=== PATIENT | male | born 1940 | race Caucasian/White ===

== ENCOUNTER → 2017-05-06 | Outpatient (CLI) | payer OTHER ==
[~2017-05-06] MED LIST: AMOX1TAB42 PO; ASPI81TA28 PO; CHOL2000 PO; CLC100 PO; DIPH38TA PO; PLAVIX75 PO; RIZA10TA18 PO; TRAM-10 PO
--- NOTE | 2017-05-06 09:01 | DIAGNOSTIC IMAGING REPORT ---
TWO VIEW CHEST CLINICAL HISTORY: Pulmonary nodule. FINDINGS: PA and lateral chest radiographs are compared to study dated 04/29/2017. The cardiomediastinal silhouette is unremarkable. There is atherosclerotic calcification of the thoracic aorta. Emphysema and chronic interstitial thickening are similar to previous. No airspace consolidation or large pleural effusion is identified. Postoperative change is suggested at the right lung base. Linear scarring is identified in the right midlung. There is no pneumothorax. The bony thorax appears intact. IMPRESSION: 1. Emphysema with no acute cardiopulmonary abnormality. 2. Postoperative change and scarring is identified in the right lung. No discrete pulmonary nodule is seen by x-ray. Electronically signed by: Carlos Walter M.D. 05/06/2017 9:00 AM Dictated Date/Time: 05/06/2017 8:55 AM
== END | disposition home or self-care (01) ==
LOC: C.RAD 08:21
PROVIDERS: ATTEND Surgery
DX: R91.1 Solitary pulmonary nodule (principal)

== ENCOUNTER → 2017-08-05 | Outpatient (CLI) | payer OTHER ==
--- NOTE | 2017-08-05 09:39 | DIAGNOSTIC IMAGING REPORT ---
CHEST 2 VIEWS ROUTINE CLINICAL HISTORY: Pulmonary nodule. COMPARISON STUDY: Chest radiograph May 06, 2017. FINDINGS: Postoperative findings within the right lower lung are noted. There is no pneumothorax. There is a possible trace right pleural effusion which has decreased in size. There is no evidence for pulmonary edema. Cardiac size is normal. Mediastinal contours are normal. No noncalcified pulmonary nodules are identified although sensitivity is diminished given radiographic technique. There may be a 4 mm calcified right midlung granuloma. IMPRESSION: Postoperative findings within the right lower lung. Possible trace right pleural effusion, decreased in size since prior exam. No pneumothorax. Electronically signed by: Bud Alvarez M.D. 08/05/2017 9:37 AM Dictated Date/Time: 08/05/2017 9:34 AM
== END | disposition home or self-care (01) ==
LOC: C.RAD1850 09:24
PROVIDERS: ATTEND Physician Assistant
DX: R91.1 Solitary pulmonary nodule (principal)

== ENCOUNTER → 2018-01-13 | Outpatient (CLI) | payer OTHER ==
[~2018-01-13] MED LIST changes: +ACET-1047 PO; -AMOX1TAB42 PO; +ATV/1 PO; +CAL1CHW4 PO; -DIPH38TA PO; +NRN300 PO; -TRAM-10 PO; +ULT/50 PO
--- NOTE | 2018-01-13 10:36 | DIAGNOSTIC IMAGING REPORT ---
CHEST 2 VIEWS ROUTINE CLINICAL HISTORY: C34.90 Non-small cell lung [id number] dyspnea COMPARISON STUDY: 12/28/2017 FINDINGS: Small right apical pneumothorax estimated 15% right hemithoracic volume. No separation is 2.0 cm. Small right effusion unchanged. No evidence for cardiac enlargement. IMPRESSION: 1. Interval development of a small right apical pneumothorax estimated at 15% of total volume. 2. Maximum pleural separation is 2 cm. 3. Unchanging right pleural effusion. The above report was generated using voice recognition software. It may contain grammatical, syntax or spelling errors. Electronically signed by: Bakari Norris M.D. 01/13/2018 10:35 AM Dictated Date/Time: 01/13/2018 10:33 AM
== END | disposition home or self-care (01) ==
LOC: C.RAD1850 10:18
PROVIDERS: ATTEND Physician Assistant
DX: C34.90 Malignant neoplasm of unspecified part of unspecified bronchus or lung (principal)

== ENCOUNTER 2019-03-03 06:18 | Inpatient (IN) ==
--- NOTE | 2019-02-13 16:26 | PAT Medication Instructions ---
Medication Instructions Date of Service February 13, 2019 Home Medications aspirin 81 mg tablet,delayed release 81 mg PO QAM cholecalciferol (vitamin D3) 2,000 unit capsule 2,000 unit PO QAM clopidogrel 75 mg tablet 75 mg PO QAM gabapentin 300 mg capsule PO .TAKE 1 CAPSULE 3 JASWANT lorazepam 1 mg tablet 1 mg PO DAILY PRN omeprazole 20 mg capsule,delayed release 20 mg PO QAM propranolol 10 mg PO BID ASK your prescriber and surgeon aspirin 81 mg tablet,delayed release 81 mg PO QAM clopidogrel 75 mg tablet 75 mg PO QAM DO NOT take the morning of surgery cholecalciferol (vitamin D3) 2,000 unit capsule 2,000 unit PO QAM Take morning of surgery With a small sip of water, OTHERWISE NOTHING TO EAT OR DRINK AFTER MIDNIGHT: gabapentin 300 mg capsule PO .TAKE 1 CAPSULE 3 JASWANT lorazepam 1 mg tablet 1 mg PO DAILY PRN (if needed) omeprazole 20 mg capsule,delayed release 20 mg PO QAM propranolol 10 mg PO BID Take evening before surgery gabapentin 300 mg capsule PO .TAKE 1 CAPSULE 3 JASWANT propranolol 10 mg PO BID Other Notes If you have any questions please call us at [phone] or [phone] or [phone] or [phone]
--- NOTE | 2019-02-14 14:34 | Anesthesiology Consultation ---
Date of Service February 14, 2019 Assessment & Plan (1) Encounter for pre-operative examination: Chart Review Chart Review: Acceptable Risk for Surgery and Patient seen in Pre Admission Testing Teaching & Discussion Pre-Anesthesia Teaching/Discussion Notes: Instructed NPO after midnight before surgery,except medications with 15 cc of water. Medication instructions provided according to the PAT guidelines. History Surgery Operation Date: 03/03/19 11:55 Proposed Procedures p C5 Corpectomy with Spinal Cord Monitoring - Reginald Franks DO Height/Weight Height: 6 ft 1 in Weight: 71.6 kg Allergies Allergy/AdvReac Type Severity Reaction Status Date / Time No Known Allergies Allergy Unverified 02/13/19 09:20 Medications Home Medications Medication Instructions Recorded Confirmed Last Taken aspirin 81 mg tablet,delayed 81 mg PO QAM tab 01/26/19 02/13/19 Unknown release cholecalciferol (vitamin D3) 2,000 2,000 unit PO QAM cap 01/26/19 02/13/19 Unknown unit capsule clopidogrel 75 mg tablet 75 mg PO QAM #30 tab 01/26/19 02/13/19 Unknown gabapentin 300 mg capsule PO .TAKE 1 CAPSULE 3 JASWANT #90 cap 01/26/19 01/30/19 Unknown lorazepam 1 mg tablet 1 mg PO DAILY PRN #90 tab 01/26/19 02/13/19 Unknown omeprazole 20 mg capsule,delayed 20 mg PO QAM #90 cap 01/26/19 02/13/19 Unknown release propranolol 10 mg PO BID 02/13/19 02/13/19 Unknown Past Medical History Medical History Anxiety Chronic neck and back pain Deep vein thrombosis right leg (2015) GERD (gastroesophageal reflux disease) controlled Hypertension Non-small cell cancer of right lung Osteoarthritis PVD (peripheral vascular disease) Per records, hx LLE stent; patient denies stent, stating that he was told this was a "filter" for clot prevention-- placed on plavix after LLE procedure Exercise / Class Metabolic Activity III < 4 Walking/Shop/Light housework Past Family History Family History Brother FHx: cancer Past Surgical History Surgical History History of appendectomy History of colonoscopy History of repair of rotator cuff bilateral History of tonsillectomy Status post lobectomy of lung Davinci Right VATS, RLL lobectomy with mediastinal LND: 12/08/17: Grade view 1, MAC#3 at [facility] Past Anesthesia History No Hx of Anesthesia Complications and No Family Hx of Anesthesia Complications History of PONV No Hx of PONV and No Hx of Motion Sickness Social History Smoking Status: Former smoker tobacco type: cigarettes Do You Dip or Chew Tobacco: No (Remote hx; quit 1979) Smoking End Date: Quit 2016; hx <1 PPD x 50 years Hx Alcohol Use: Yes Alcohol type: beer alcohol intake frequency: 3 or more drinks per day (*2-3 beers/day* (evening only)) Hx Substance Use: No substance use type: does not use Review of Systems Reflux controlled. Patient denies chest pain, shortness of breath, cough, wh eezing, palpitations. Physical Exam Vital Signs VITALS BP 109/65 P 66 TEMP 97.7 SP02 96%RA RESP 18 PHYSICAL Full neck and c-spine range of motion. Cervicalgia with extension Full TMJ range of motion. TMD 3.5 finger breaths Mallampati Score 3 Dentition: full dentures upper/lower; edentulous Lungs: no wheezing, rales or rhonchi Cardiac: regular rate and rhythm, no murmurs noted Spine: normal Carotid arteries: negative bruit Extremities: no edema Trimmed hopper. Testing Laboratory Results 02/14/19 14:55 02/14/19 14:55 PT 10.6 Seconds (9.0-12.0) 02/14/19 14:55 INR 1.0 (0.9-1.1) 02/14/19 14:55 APTT 26.3 Seconds (21.0-31.0) 02/14/19 14:55 Urine Color Yellow 02/14/19 Unknown Urine Appearance Clear (Clear) 02/14/19 Unknown Urine pH 5.0 (4.5-7.5) 02/14/19 Unknown Ur Specific [place] 1.018 (1.000-1.030) 02/14/19 Unknown Urine Protein Negative (Negative) 02/14/19 Unknown Urine Glucose (UA) Negative (Negative) 02/14/19 Unknown Urine Ketones Negative (Negative) 02/14/19 Unknown Urine Nitrite Negative (Negative) 02/14/19 Unknown Ur Leukocyte Esterase Negative (Negative) 02/14/19 Unknown Urine WBC (Auto) 0 /hpf (0-5) 02/14/19 Unknown Urine RBC (Auto) 0-4 /hpf (0-4) 02/14/19 Unknown U Hyaline Cast (Auto) 0 /lpf (0-5) 02/14/19 Unknown U Epithel Cells (Auto) 0-5 /lpf (0-5) 02/14/19 Unknown Urine Bacteria (Auto) Negative (Negative) 02/14/19 Unknown Blood Type O Positive 02/14/19 14:55 Antibody Screen NEGATIVE 02/14/19 14:55 Electrocardiogram Date: 02/14/19 Findings: + NSR @ (65) Other Testing Chest CT: 01/24/19: No acute intrathoracic abnormality identified. Postoperative changes from prior right lower lobectomy. No evidence of residual, recurrent or metastatic disease. Unchanged small right pleural effusion. There are several scattered bilateral solid pulmonary nodules redemonstrated, measuring up to 6 mm within the basal left lower lobe, unchanged from 11/16/2017. No new or definitively suspicious pulmonary nodules identified. Moderate emphysema.
[2019-02-14 15:43] LABS: Basophils # (auto) 0.01 K/uL (0-0.2); Basophils % (auto) 0.2 %; Eosinophils # (auto) 0.06 K/uL (0-0.5); Eosinophils % (auto) 1.4 %; Hematocrit (blood only) 35.8 % (42-52); Immature Granulocytes # (auto) 0.01 K/uL (0.00-0.02); Immature Granulocytes % (auto) 0.2 %; Lymphocytes # (auto) 0.98 K/uL (1.2-3.4); Lymphocytes % (auto) 22.1 %; Mean Corpuscular Hemoglobin 31.7 pg (25-34); Mean Corpuscular Hgb Conc 33.5 g/dL (32-36); Mean Corpuscular Volume 94.7 fL (80-100); Mean Platelet Volume 8.6 fL (7.4-10.4); Monocytes # (auto) 0.49 K/uL (0.11-0.59); Neutrophils # (auto) 2.89 K/uL (1.4-6.5); Neutrophils % (auto) 65.1 %; Platelet Count 146 K/uL (130-400); RDW Coefficient of Variation 13.4 % (11.5-14.5); RDW Standard Deviation 46.8 fL (36.4-46.3); Red Blood Count 3.78 M/uL (4.7-6.1); White Blood Count 4.44 K/uL (4.8-10.8)
[2019-02-14 15:46] LABS: Appearance Urine Clear (Clear); Bacteria Urine Automated Negative (Negative); Bilirubin Urine Negative (Negative); Blood Urine 2+ (Negative); Cast Urine Automated 0 /lpf (0-5); Color Urine Yellow; Epithelial Cell Urine Auto 0-5 /lpf (0-5); Glucose Urine UA Negative (Negative); Ketones Urine Negative (Negative); Leukocyte Esterase Urine Negative (Negative); Nitrite Urine Negative (Negative); Protein Urine Negative (Negative); RBC Urine Automated 0-4 /hpf (0-4); Specific Gravity Urine 1.018 (1.000-1.030); Urobilinogen Urine Negative (Negative); WBC Urine Automated 0 /hpf (0-5)
[2019-02-14 15:50] LABS: Calcium 8.9 mg/dl (8.5-10.1); Creatinine Clr Calc Pharmacy 57.6 ml/min; Est GFR (African American) 76.7; Est GFR (Non-African American) 66.1
[2019-02-14 16:16] LABS: Partial Thromboplastin Time 26.3 Seconds (21.0-31.0); Prothrombin Time 10.6 Seconds (9.0-12.0)
[~2019-03-03 06:18] MED LIST changes: -ACET-1047 PO; +ACETAMINOPHEN 500 MG TAB PO SCH; -ASPI81TA28 PO; -ATV/1 PO; -CAL1CHW4 PO; +CEFAZOLIN 1000MG 1,000 MG/7.5 ML SYR IV SCH; -CHOL2000 PO; -CLC100 PO; +CeleBREX 200 MG CAP PO SCH; +GABAPENTIN 300 MG CAP PO SCH; +LR 15ML/HR IV SCH; -NRN300 PO; -PLAVIX75 PO; -RIZA10TA18 PO; -ULT/50 PO
[2019-03-03] MEDS ORDERED: MIDAZOLAM HCL 1 MG/ML 2ML VIAL ONE (06:45)
[2019-03-03] MEDS ORDERED: HYDROmorphone INJ 2 MG/ML SYR/VIAL ONE ×2 (06:45→07:39)
[2019-03-03] MEDS ORDERED: fentaNYL citrate 100 MCG/2 ML VIAL ONE ×4 (06:45→09:38)
[2019-03-03] MEDS ORDERED: BACITRACIN INJ 50,000 UNIT VIAL ONE (07:07)
[2019-03-03] MEDS ORDERED: LARYING-O-JET KIT (LTA) ONE (07:21)
--- NOTE | 2019-03-03 07:37 | History & Physical Bridge Note ---
Date of Service March 03, 2019 History & Physical Bridge Note I have examined the patient, reviewed the History & Physical and in the interval since the performance of the History & Physical I have noted the following changes of clinical significance: no changes noted
--- NOTE | 2019-03-03 07:38 | History & Physical Report ---
Date of Service March 03, 2019 Assessment & Plan (1) Cervical stenosis of spinal canal: Corpectomy C5 Present on Admission?: Yes History of Present Illness Chief Complaint: Neck and bilateral arm pain Primary Care Provider: Lio Mao DO This is a 70-year-old male that presents with chronic persistent neck and arm symptoms after failing extensive course of nonoperative care is here for surgical intervention. Allergies Allergy/AdvReac Type Severity Reaction Status Date / Time No Known Allergies Allergy Verified 03/03/19 06:40 Home Medications Home Medications Medication Instructions Recorded Confirmed Type aspirin 81 mg tablet,delayed 81 mg PO QAM tab 01/26/19 03/03/19 History release cholecalciferol (vitamin D3) 2,000 2,000 unit PO QAM cap 01/26/19 03/03/19 History unit capsule clopidogrel 75 mg tablet 75 mg PO QAM #30 tab 01/26/19 03/03/19 History lorazepam 1 mg tablet 1 mg PO DAILY PRN #90 tab 01/26/19 03/03/19 History omeprazole 20 mg capsule,delayed 20 mg PO QAM #90 cap 01/26/19 03/03/19 History release propranolol 10 mg PO BID 02/13/19 03/03/19 History rizatriptan 10 mg PO BID PRN 03/03/19 03/03/19 History Past Med/Surg History Medical History Anxiety Chronic neck and back pain Deep vein thrombosis left leg GERD (gastroesophageal reflux disease) controlled Hypertension Osteoarthritis Non-small cell cancer of right lung PVD (peripheral vascular disease) Per records, hx LLE stent; patient denies stent, stating that he was told this was a "filter" for clot prevention-- placed on plavix after LLE procedure Surgical History History of appendectomy History of colonoscopy History of repair of rotator cuff bilateral History of tonsillectomy Status post lobectomy of lung Davinci Right VATS, RLL lobectomy with mediastinal LND: 12/08/17: Grade view 1, MAC#3 at [facility] Family History Brother FHx: cancer Social History Preferred Language: Slovak Communication Ability: Effective Electrician Wiring Required: No Beliefs That Will Affect Care: None Current Living Situation: Spouse Other Information That Helps Us Care for You: No Feels Safe at Home: Yes Safety Concerns: Feels Safe At This Time Smoking Status: Former smoker Tobacco Type: cigarettes ; Do You Dip or Chew Tobacco: No (Remote hx; quit 1979) ; Smoking End Date: Quit 2016; hx <1 PPD x 50 years ; Second Hand Exposure: No ; Tobacco Cessation Education Requested by Patient: No Hx Alcohol Use: Yes Alcohol type: beer Hx Substance Use: No Physical Exam Physical Exam: Patient alert and oriented neurologically intact. Results & Data Vital Signs (Past 12 Hours) Vital Signs Temp Pulse Resp BP Pulse Ox 03/03/19 06:55 36.3 C L 66 20 131/78 97
[2019-03-03] MEDS ORDERED: PROPOFOL IV EMULSION 10 MG/ML 100 ML VIAL IV ONE (07:39)
[2019-03-03] MEDS ORDERED: SUCCINYLCHOLINE CHLORIDE 20 MG/ML 10 ML VIAL ONE (07:41)
[2019-03-03] MEDS ORDERED: LIDOCAINE HCL 2% 2 ML VIAL/AMP(20MG/ML) INFIL ONE (07:41)
[2019-03-03] MEDS ORDERED: NEOSTIGMINE METHYLSULFATE 1 MG/ML 10ML VIAL ONE (07:41)
[2019-03-03] MEDS ORDERED: ROCURONIUM BROMIDE 10 MG/ML 5 ML VIAL ONE (07:41)
[2019-03-03] MEDS ORDERED: ONDANSETRON INJ 2 MG/ML 2 ML VIAL ONE (07:41)
[2019-03-03] MEDS ORDERED: DEXAMETHASONE SOD INJ 4 MG/ML VIAL ONE (07:41)
[2019-03-03] MEDS ORDERED: GLYCOPYRROLATE 0.2 MG/ML VIAL ONE (07:41)
[2019-03-03] MEDS ORDERED: PROPOFOL IV EMULSION 10 MG/ML 20 ML VIAL IV ONE ×2 (07:41→08:33)
[2019-03-03] MEDS ORDERED: ePHEDrine sulfate 50 MG/ML AMP IV PRN (07:45)
[2019-03-03] MEDS ORDERED: HYDROmorphone INJ 2 MG/ML SYR/VIAL IV PRN (07:45)
[2019-03-03] MEDS ORDERED: ATROPINE SULFATE 0.1 MG/ML 10ML SYR IV PRN (07:45)
[2019-03-03] MEDS ORDERED: ePHEDrine sulfate 50 MG/ML SYR ONE (08:35)
[2019-03-03] MEDS ORDERED: FLOSEAL HEMOSTATIC MATRIX 10ML TOP ONE (09:27)
--- NOTE | 2019-03-03 09:44 | Operative Report ---
Post Operative Report Pre & Post Diagnosis Operation Date: 03/03/19 07:45 Pre-Op Diagnosis: Cervical spinal stenosis with myeloradiculopathy Post-Op Diagnosis: Same Procedure Operation Date: 03/03/19 07:45 Actual Procedures #1 anterior cervical corpectomy with bilateral foraminotomies C5. #2 anterior cervical arthrodesis C4-C6. #3 placement of peek cage 25 mm in height C4-C6. #4 placement of locally harvested morselized autograft combined with DBM and interbody cage. #5 placement of watson plate and screws across C4-C6. Surgeon Reginald Franks, Lease Analyst None Estimated Blood Loss 20 Findings Consistent with Post-Op Diagnosis Specimens None Indications This is a 78-year-old male presents with worsening left arm symptoms and weakness after failing a course of nonoperative care like to undergo the above- mentioned procedure. Description of Procedure Patient was met with identified and informed consent obtained. Patient was then taken to the operative suite underwent ablation placed in a supine position Dhruv table with head De Guzman polisher balance screwhead. All bony prominences well-padded eyes inspected to ensure no external pressure placed upon. This point the anterior cervical spine was prepped and draped in normal sterile fashion. With the assistance of fluoroscopy and identified the C5 vertebral body transverse incision was placed on the right anterior aspect of the cervical spine overlying this region. Sharp dissection with the assistance of bipolar electric arteries performed on November exposing the anterior cervical spine from C4-C6. Self- retaining retractors placed. Then performed a complete discectomy C4-5 out to the uncovertebral joints bilaterally followed by C5-6. [place] distracting pins were then placed in C4 and C6 to distract across the C5 vertebral body. A complete corpectomy was then performed which included removal of all posterior annular fibers longitudinal ligament bilateral foraminotomies addressing severe stenosis. Endplates were then burred to subcortical bleeding bone and a 25 mm peek cage filled with morselized autograft and DBM tapped in position. Distraction apparatus was removed and a watson plate and screws applied with the assistance of fluoroscopy. Incision was then copiously irrigated explored to ensure no damage to surrounding structures remaining bleeding. 10 round ALEXIS drain inserted. The incision was then closed with 1 Vicryl in the fascia 2-0 Vicryl subcutaneously and 4-0 Monocryl for final skin closure. Steri-Strip st erile dressings placed. Patient will continue to PACU stable condition. Please note spinal cord monitoring was utilized that procedure no changes noted. I attest to the content of the Intraoperative Record and any orders documented therein. Any exceptions are noted below.
--- NOTE | 2019-03-03 09:54 | Fluoroscopy Report ---
FL cervical 2-3V CLINICAL HISTORY: C5 CORPECTOMY COMPARISON STUDY: None FLUOROSCOPY TIME: 8 seconds. NUMBER OF FLUOROSCOPIC IMAGES: 2 FINDINGS: 2 intraoperative fluoroscopic spot images reveal postsurgical changes of a C5 corpectomy, a nd anterior spinal fusion with anterior metallic plate and screws at the C4 and C6 levels. IMPRESSION: Intraoperative radiograph demonstrating a C5 corpectomy and anterior spinal fusion Electronically signed by: Jori Rose M.D. 03/03/2019 9:53 AM
[2019-03-03] MEDS ORDERED: LORazepam 0.5 MG TAB PO PRN (11:44)
[2019-03-03] MEDS ORDERED: MAGNESIUM HYDROXIDE SUSP 30 ML UDC PO PRN (11:44)
[2019-03-03] MEDS ORDERED: TRAMADOL HCL 50 MG TABLET PO PRN (11:44)
[2019-03-03] MEDS ORDERED: SCOPOLAMINE 1.5 MG TDSY TD SCH (11:44)
[2019-03-03] MEDS ORDERED: DO NOT ADMINISTER PNEUMOCOCCAL VACCINE PRN (11:44)
[2019-03-03] MEDS ORDERED: ACETAMINOPHEN 1,000 MG/100 ML VIAL IV PRN (11:44)
[2019-03-03] MEDS ORDERED: NALOXONE HCL 0.4 MG/1 ML VIAL/CARP IV PRN (11:44)
[2019-03-03] MEDS ORDERED: HYDROmorphone INJ 0.5 MG/0.5 ML SYR IV PRN (11:44)
[2019-03-03] MEDS ORDERED: LORazepam 1 MG TAB PO PRN (11:44)
[2019-03-03] MEDS ORDERED: LORazepam 0.5 MG/1 ML VIAL IV PRN (11:44)
[2019-03-03] MEDS ORDERED: ONDANSETRON INJ 2 MG/ML 2 ML VIAL IV PRN (11:44)
[2019-03-03] MEDS ORDERED: DiphenhydrAMINE HCL 50 MG/ML VIAL IV PRN (11:44)
[2019-03-03] MEDS ORDERED: RIZATRIPTAN BENZOATE 10 MG TAB PO PRN (11:44)
[2019-03-03] MEDS ORDERED: ACETAMINOPHEN 500 MG TAB PO PRN (11:44)
[2019-03-03] MEDS ORDERED: RACEPINEPHRINE 2.25% NEBU SOLN 0.5 ML VIAL INH PRN (11:44)
[2019-03-03] MEDS ORDERED: DO NOT ADMINISTER FLU VACCINE PRN (11:44)
[2019-03-03] MEDS ORDERED: DEXAMETHASONE SOD PHOSPHATE 8 MG in SYRINGE 0 ML IV PRN (11:44)
[2019-03-03] MEDS ORDERED: OXYCODONE HCL IR 5 MG TAB (IMMEDIATE RELEASE) PO PRN (11:44)
--- NOTE | 2019-03-03 12:14 | Anesthesiology Progress Note ---
Date of Service March 03, 2019 Anesthesia Post Procedure Vital Signs Vital Signs: Temp Pulse Pulse Resp BP Pulse Ox 03/03/19 12:10 82 18 98 03/03/19 11:59 85 16 137/73 100 03/03/19 11:35 36.5 C 71 16 130/69 99 03/03/19 11:10 36.6 C 69 14 131/71 97 03/03/19 11:00 36.6 C 68 14 125/69 97 03/03/19 10:50 36.6 C 92 H 14 124/75 97 03/03/19 10:40 36.6 C 72 14 136/74 96 03/03/19 10:30 69 14 136/76 98 03/03/19 10:20 81 16 128/79 99 03/03/19 10:10 67 16 137/78 98 03/03/19 10:00 75 16 138/81 99 03/03/19 09:51 36.3 C L 71 16 131/81 98 03/03/19 06:55 36.3 C L 66 20 131/78 97 Transfer of Care Handoff Completed per policy Notes Mental Status: alert / awake / arousable Patient Amnestic to Procedure: Yes Nausea / Vomiting: adequately controlled Pain: adequately controlled Airway Patency, RR, SpO2: stable & adequate BP & HR: stable & adequate Hydration State: stable & adequate Anesthetic Complications: no major complications apparent and Pt Satisfied with anesthetic care
[2019-03-03] MEDS: LACTATED RINGER'S 1,000 ML IV SCH (14:20)
[2019-03-03] MEDS ORDERED: COUGH DROP (SUGAR FREE) LOZ 24 LOZ/1 BOX BUCCAL PRN (16:05)
[2019-03-03] MEDS ORDERED: COUGH DROP (SUGAR FREE) LOZ 24 LOZ/1 BOX BUCCAL ONE (16:07)
[2019-03-03] MEDS: CEFAZOLIN 1000MG 1,000 MG/7.5 ML SYR IV SCH (16:12)
[2019-03-03] MEDS: CHECK SCOPOLAMINE PATCH PLACEMENT SCH (16:12)
[2019-03-03] MEDS: DOCUSATE SODIUM 100 MG CAP PO SCH (21:07)
[2019-03-03] MEDS: PROPRANOLOL HCL 10 MG TAB PO SCH (21:07)
[2019-03-04] MEDS: CHECK SCOPOLAMINE PATCH PLACEMENT SCH ×2 (00:22→08:45)
[2019-03-04] MEDS: LACTATED RINGER'S 1,000 ML IV SCH ×2 (00:22→03:46)
[2019-03-04] MEDS: CEFAZOLIN 1000MG 1,000 MG/7.5 ML SYR IV SCH ×2 (00:22→08:44)
--- NOTE | 2019-03-04 08:11 | Discharge Summary ---
Date of Service March 04, 2019 Admission HPI Per Admitting Provider This is a 70-year-old male that presents with chronic persistent neck and arm symptoms after failing extensive course of nonoperative care is here for surgical intervention. Principal Diagnosis Cervical spinal stenosis with myeloradiculopathy Discharge Data Allergies Allergy/AdvReac Type Severity Reaction Status Date / Time No Known Allergies Allergy Verified 03/03/19 06:40 Procedures Performed Operation Date: 03/03/19 07:45 Actual Procedures p C5 Corpectomy, Spinal Cord Monitoring(Not Applicable) - Reginald Franks DO Ordered Studies 03/03/19 07:45 FL cervical 2-3V Routine FL fluoroscopy <1hr Routine Hospital Course (1) Cervical stenosis of spinal canal: Patient underwent anterior cervical corpectomy fusion tolerated as well as taken to orthopedic for postoperative. Postop day #1 he was swallowing well. He had no hoarseness. Arm symptoms improved. ALEXIS drain decreasing appropriately. Subsequently discharged home. Discharge orders and instructions found in the chart for further review. Total Time Total Time Spent Total Time Spent (In Minutes): 20 minutes Discharge Plan Discharge Items Patient Disposition: Home - Self-Care Reason For Visit: Spinal Stenosis, Cervical Region Discharge Diagnosis: Cervical spinal stenosis with myeloradiculopathy Activity: Per Instructions section Non-emergency contact: Primary Care Provider Call non-emergency contact if: you have any medication questions Follow-up/Referrals: Lio Mao DO [Primary Care Provider] - Diet: Regular Addtl Attending Provider Instructions: ACTIVITY RECOMMENDATIONS: SELF CARE INSTRUCTIONS AFTER CERVICAL FUSIONS 1. No smoking. Smoking drastically decreases the chance of a solid fusion. 2. No bending, lifting more than 5 pounds, or twisting (roll like a log when turning in bed). 3. You may shower 3 days after surgery. Thoroughly dry wound. Do not soak in the tub. 4. Cervical collar: Must be worn at all times including sleeping. You may remove the brace only to bath, eat and if you are sitting in a recliner. 5. Please walk as much as you can for exercise. Gradually increase the distance that you walk as your endurance increases. SPECIAL CARE INSTRUCTIONS: VERY IMPORTANT TO READ AND REVIEW A. Do not take any anti-inflammatory medications (i.e. Indocin, Advil, Aspirin, Naprosyn, Aleve, Motrin, etc.) as these may inhibit the chance of a solid fusion. Tylenol is okay to take. B. Your surgical incision has been closed with a cosmetic suture under the skin that will dissolve in about 6 weeks. In 14 days, you can use a pair of clean scissors and cut the suture that is left outside of the skin at the ends of your incision. C. Complications are uncommon, but please contact us if you have any signs or symptoms of: 1. wound infection (fever higher than 102.5 degrees F, redness, separation of wound, drainage, or increasing pain from the incision) 2. blood clots in legs (pain, swelling, redness and warmth in legs) 3. urinary tract infection (fever higher than 102.5 degrees, burning upon urination or increased frequency of urination) 4. nerve problems (inability to walk on your toes or heels, numbness, loss of bowel or bladder control) 5. any other symptoms that concern you. D. Please call the office at if you have any concerns or questions about your operation or recovery. MANAGING PAIN AFTER SPINAL SURGERY 1. Narcotic medication is intended for short-term use and will be provided for surgical pain. Surgical pain usually lasts for a period of 4-6 weeks. Narcotic medication includes Percocet, Vicodin, Darvocet, Tylenol #3 or Lortab. 2. Longer-term pain is more appropriately treated with non-narcotic medication such as Tylenol ES. 3. Muscle spasm is not appropriately treated with narcotics. Muscle relaxers such as Soma, Flexeril or Skelaxin can be used along with Tylenol ES. 4. Remember that we all live with some "aches and pains". This is not unusual or uncommon after an injury or as we get older. 5. We will provide appropriate medication within the normal guidelines of their prescribed use. We will also be very cautious and aware of potential abuse and extended duration of patients' medication needs. 6. Please allow 2-3 days to process refills. Prescriptions will not be mailed but must be picked up at the office. FOLLOW UP VISIT: Keep your scheduled follow-up appointment. Any questions, please call the office at . Pending Studies at Discharge: No Stand-Alone Forms: [facility] [employer] and [place] Order Prescriptions: New tramadol 50 mg Tablet 50 mg PO Q4H PRN (Reason: Pain, Moderate) Qty: 20 RF: 0 oxycodone 5 mg Tablet 5 mg PO Q4H PRN (Reason: Pain, Severe) Qty: 20 RF: 0 Continued cholecalciferol (vitamin D3) 2,000 unit capsule 2,000 unit PO QAM RF: 0 lorazepam 1 mg tablet 1 mg PO DAILY PRN (Reason: Anxiety) Qty: 90 RF: 0 aspirin 81 mg tablet,delayed release (DR/EC) 81 mg PO QAM RF: 0 clopidogrel 75 mg tablet 75 mg PO QAM Qty: 30 RF: 0 omeprazole 20 mg capsule,delayed release(DR/EC) 20 mg PO QAM Qty: 90 RF: 0 propranolol 10 mg Tablet 10 mg PO BID RF: 0 rizatriptan 10 mg Tablet 10 mg PO UD PRN (Reason: Migraine Headache) RF: 0 Discharge Orders: Discharge Order (Routine); Ordered 03/04/19 Ordered By: Reginald Franks Admission Data Admit Date/Time: 03/03/19 09:49 Attending Provider: Reginald Franks Admit Provider: Reginald Franks Primary Care Provider: Lio Mao
[2019-03-04] MEDS: DOCUSATE SODIUM 100 MG CAP PO SCH (08:45)
[2019-03-04] MEDS: PROPRANOLOL HCL 10 MG TAB PO SCH (08:45)
[2019-03-04] MEDS ORDERED: ASPIRIN 81 MG ECTAB PO SCH (09:00)
[2019-03-04] MEDS ORDERED: PANTOprazole 40 MG TAB PO SCH (09:00)
[2019-03-04 10:46] VITALS: BP 129/77; TEMP 98.1
[2019-03-04 11:12] VITALS: PULSE 79; O2SAT 98
== END 2019-03-04 13:07 | disposition home or self-care (01) | DRG 473 ==
LOC: ASU 06:18 → 3E 09:49
DX: K21.9 Gastro-esophageal reflux disease without esophagitis; I10 Essential (primary) hypertension; Z95.820 Peripheral vascular angioplasty status with implants and grafts; M48.02 Spinal stenosis, cervical region; Z79.899 Other long term (current) drug therapy; Z79.02 Long term (current) use of antithrombotics/antiplatelets; M54.12 Radiculopathy, cervical region; Z85.118 Personal history of other malignant neoplasm of bronchus and lung; Z79.82 Long term (current) use of aspirin; Z87.891 Personal history of nicotine dependence; Z90.2 Acquired absence of lung [part of]; Z86.718 Personal history of other venous thrombosis and embolism